=== PATIENT | female | born 1975 | race African-American/Black ===

== ENCOUNTER 2016-06-02 09:37 | Emergency (ER) | payer OTHER ==
[2016-06-02 09:52] VITALS: BMI 44.4
[2016-06-02] MEDS ORDERED: TRIAMCINOLONE 0.1% CREAM 15 GM TUBE TOP ONE ×2 (10:02→11:00)
--- NOTE | 2016-06-02 10:05 | EDPRACDOC ---
- General Information Chief Complaint: Wound Stated Complaint: TOE PAIN Time Seen by Provider: 06/02/16 09:57 Information Source: Patient Mode Of Arrival: Car Home Medications: Home Medications Amoxicillin Trihydrate [Amoxicillin] 500 mg PO TID #30 tab 04/14/16 Benzonatate [Tessalon] 200 mg PO TID #20 per 04/14/16 Oxycodone HCl/Acetaminophen [Percocet 5-325 mg Tablet] 1 tab PO Q4-6H PRN #10 tab 04/14/16 Prednisone [Deltasone, Orasone] 20 mg PO BID #12 tab 04/14/16 Allergies/Adverse Reactions: Allergies Allergy/AdvReac Type Severity Reaction Status Date / Time latex Allergy RASH Verified 06/02/16 09:52 - History of Present Illness Onset: THURSDAY Wound Location: RIGHT 5TH DIGIT Wound Type: Other (ABRASION) Wound Discharge: Clear Previously Treated In: Other (BY PATIENT) Current Wound Treatment: Other (TOPICAL NEOSPORIN) Associated Signs and Symptoms: Pain ED Past Medical History - History Reviewed Yes Nurses notes reviewed and agree except as marked - Patient Medical History Cardiac History: Reports: Hypertension Psychological History: Reports: Depression Systemic History: Denies: Diabetes Surgical History: Reports: Cholecystectomy - Social Medical History Smoking Status: Heavy tobacco smoker (5 or more cigarettes/day or daily pipe/ cigar) EDM Review of Systems - Review of Systems ROS Negative Except as Marked: Yes All systems reviewed and were negative except as marked - Physical Exam Constitutional: Alert Oriented to: Time, Person, Place Last recorded Vital Signs: Last Vital Signs Temp 98.0 F 06/02/16 09:47 Pulse 86 06/02/16 09:47 Resp 18 06/02/16 09:47 BP 220/119 H 06/02/16 09:47 Pulse Ox 98 06/02/16 09:47 Oxygen Pulse Oxygen Saturation 98 O2 Device Room Air Oxygen Flow Rate Fraction of Inspired Oxygen ( FIO2) - HEENT Head: Normal ( normocephalic) Eye Exam: Normal (PERRL, EOMI, Sclera white) Oropharynx: Normal (Pharynx:Moist without exudate,Gums-no swelling) Nose: No Symptoms Reported (septum midline) Neck: Normal (FROM, trachea at midline) - Respiratory/Cardiovascular Respiratory: Normal - CTA (BBS clear to auscultation without adventitious sounds ) Cardiovascular: Normal (RRR without murmur, gallop or rub) - GI Auscultation: Normal (NABS) Palpation: Normal (Soft,No rebound or guarding, non distended) Tenderness: Non tender Santa's Sign: Negative Rectal Exam: Deferred - Musculoskeletal Back: Normal (Non-Tender) Extremities: Normal (Normal tone, Pulses 2+ No cyanosis or edema, FROM) - Integumentary Skin: Normal, Warm, Dry Lymphatics: Normal (no adenopathy) - Neurologic Memory Impaired: Normal Motor Function: Normal (Normal tone, Pulses 2+ No cyanosis or edema, FROM) Cranial Nerve: Normal (CN II-X11 intact sensation, strength 5/5) Cerebellar: Normal Mood Description: Normal Perception: Normal ED Wound Check Exam - Wound Detail Wound Location: RIGHT FIFTH DIGIT Healing: Tenderness Discharge: Clear Erythema: None - Differential Diagnosis Healing wound Decision Time to Discharge: 10:06 - Departure Disposition: Home Condition: Stable Final Diagnosis: Healing wound Instructions: Acute Wound Care (ED) Education/Counseling Given To: Patient Education/Counseling Given Regarding: Diagnosis, Treatment, Prognosis, Follow Up Referrals: Isrrael Wyman II, MD [Staff Physician] - One Week Forms: Excuse Note Additional Instructions: APPLY CREAM TWICE A DAY. KEEP AREA CLEAN AND DRY. FOLLOW UP WITH PCP NEXT WEEK. RETURN TO THE ED FOR WORSENING SYMPTOMS OR CONCERNS.
[2016-06-02 10:27] VITALS: BP 207/135; PULSE 88
[2016-06-02 10:32] VITALS: TEMP 98.6
[2016-06-02] MEDS ORDERED: TRIAMCINOLONE 0.1% CREAM 15 GM TUBE TOP SCH (11:00)
== END 2016-06-02 10:25 | disposition home or self-care (01) ==
LOC: ED 09:37
DX: S90.414A Abrasion, right lesser toe(s), initial encounter (principal); X58.XXXA Exposure to other specified factors, initial encounter
CPT/HCPCS: 99283; J3490

== ENCOUNTER 2016-06-23 04:20 | Emergency (ER) | payer OTHER ==
[2016-06-23 04:35] VITALS: BP 192/113; PULSE 95; TEMP 99.1; BMI 43.1
[2016-06-23] MEDS ORDERED: PENICILLIN 250 MG TAB PO ONE (04:38)
[2016-06-23] MEDS ORDERED: OXYCODONE HCL 5 MG TABLET PO STA (04:38)
--- NOTE | 2016-06-23 04:41 | EDPRACDOC ---
- General Information Chief Complaint: Facial Pain Stated Complaint: FACIAL SWELLING Time Seen by Provider: 06/23/16 04:28 Information Source: Patient Mode Of Arrival: Car Home Medications: Home Medications Oxycodone HCl [Roxicodone] 5 mg PO Q4-6H PRN #15 tablet 06/23/16 Penicillin V Potassium 500 mg PO QID #40 tablet 06/23/16 Allergies/Adverse Reactions: Allergies Allergy/AdvReac Type Severity Reaction Status Date / Time latex Allergy RASH Verified 06/02/16 09:52 - History of Present Illness Onset: [employer] HPI: PT PRESENTS WITH RIGHT UPPER DENTAL SWELLING WITH EXTENSION TO RIGHT MAXILLARY FACE. HAS A FRACTURED TOOTH AT ORIGIN. Pain Severity: Reports: Moderate Relevant History of: Reports: None ED Past Medical History - History Reviewed Yes Nurses notes reviewed and agree except as marked - Patient Medical History Cardiac History: Reports: Hypertension Psychological History: Reports: Depression Systemic History: Denies: Diabetes Surgical History: Reports: Cholecystectomy - Social Medical History Smoking Status: Heavy tobacco smoker (5 or more cigarettes/day or daily pipe/ cigar) Lives In: Home EDM Review of Systems - Review of Systems ROS Negative Except as Marked: Yes All systems reviewed and were negative except as marked Constitutional: negative: Fever Mouth: Tooth Pain (WITH RIGHT FACIAL SWELLING.) - Physical Exam Constitutional: Alert Oriented to: Time, Person, Place Last recorded Vital Signs: Last Vital Signs Temp 99.1 F 06/23/16 04:31 Pulse 95 06/23/16 04:31 Resp 20 06/23/16 04:31 BP 192/113 H 06/23/16 04:31 Pulse Ox 99 06/23/16 04:31 Oxygen Pulse Oxygen Saturation 99 O2 Device Room Air Oxygen Flow Rate Fraction of Inspired Oxygen ( FIO2) - HEENT Head: Swelling (RIGHT LOWER MAXILLARY ABOVE FRACTURE CANINE TOOTH.). negative: Deformity, Laceration Eye Exam: negative: Conjunctival Injection, Pale Conjunctiva Oropharynx: negative: Membranes Dry Nose: negative: Congestion, Discharge Neck: negative: Limited ROM - Integumentary Skin: Warm, Dry. negative: Rash - Neurologic Memory Impaired: Normal Motor Function: Normal Mood Description: Anxious Thought: Coherent Perception: Normal ED Tooth Problem Exam - HEENT Face: Swelling (RIGHT LOWER MAXILLARY FACE ABOVE CANINE.) Gingiva: Tender Palate: Normal Mouth Range of Motion: Normal Decision Time to Discharge: 04:41 - Departure Yes I personally saw and evaluated the patient. Disposition: Home Condition: Stable Final Diagnosis: Dental abscess Instructions: Dental Abscess (ED) Education/Counseling Given To: Patient Education/Counseling Given Regarding: Diagnosis, Treatment, Prognosis, Follow Up Referrals: Isrrael Smallwood MD [Primary Care Provider] - Call for Appointment Prescriptions: Oxycodone HCl [Roxicodone] 5 mg PO Q4-6H PRN #15 tablet PRN Reason: Breakthrough Pain Penicillin V Potassium 500 mg PO QID #40 tablet Forms: Excuse Note Additional Instructions: YOU MUST FOLLOW UP WITH A DENTIST FOR FURTHER CARE OF YOUR TOOTH PROBLEM.
== END 2016-06-23 04:58 | disposition home or self-care (01) ==
LOC: ED 04:20
DX: K04.7 Periapical abscess without sinus (principal)
CPT/HCPCS: 99282; J3490